=== PATIENT | female | born 1980 | race Two or more races ===

== ENCOUNTER 2024-10-22 20:13 | Emergency (ER) | payer OTHER ==
[~2024-10-22] VITALS: Ht 165.1 cm; Wt 90.9 kg
[2024-10-22 21:03] LABS: Basophils # (auto) 0 10 ^3/uL (0-0.2); Basophils % (auto) 0.4 % (0.0-2.0); Eosinophils # (auto) 0.1 10 ^3/uL (0-0.8); Eosinophils % (auto) 1.2 % (0.0-7.0); Hematocrit 35.2 % (36.0-46.0); Hemoglobin 12.2 g/dL (12.2-16.2); Lymphocytes # (auto) 2.6 10 ^3/uL (0.4-5.4); Lymphocytes % (auto) 23.1 % (10.0-50.0); Mean Corpuscular Hemoglobin 32.8 pg (28.0-32.0); Mean Corpuscular Hgb Conc. 34.5 g/dL (32.0-36.0); Mean Corpuscular Volume 95.2 fL (80.0-100.0); Monocytes # (auto) 0.9 10 ^3/uL (0-1.3); Monocytes % (auto) 7.7 % (0.0-12.0); Neutrophils # (auto) 7.5 10 ^3/uL (1.6-8.6); Neutrophils % (auto) 67.6 % (37.0-80.0); Nucleated Red Blood Cells % 0.1 %; Platelet Count (auto) 196 10^3/uL (140-450); Red Cell Distribution Width 13.3 % (11.8-14.3); White Blood Cell 11.1 10^3/uL (4.4-10.8)
--- NOTE | 2024-10-22 21:14 | ED.PDOC ---
History of Present Illness HPI Comments 44-year-old female who came to the ER via EMS for bleeding varicose veins. Patient is a , currently 26 weeks . She does have history of gestational hypertension. Earlier to the she started having bleeding varicose veins on the left leg. Bleeding stopped at this time of care. 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 Cardiac: No chest pain. No palpitations. Lungs: No shortness of breath, no cough. GI: No nausea, no vomiting, no diarrhea, no constipation, no abdominal pain : No dysuria, frequency, or urgency. No hematuria. Musculoskeletal: No joint pain , no joint swelling, no extremity edema. (+) bleeding varicose vein Skin: No rash, no itching. Neuro: No headache, no dizziness, no weakness Vital Signs Vital Signs Date Time Temp Pulse Resp B/P (MAP) Pulse Ox O2 Delivery O2 Flow Rate FiO2 10/22/24 20:24 98.2 90 18 132/95 (107) 100 98.2 Physical Exam General: Awake, alert and oriented. No acute distress. Skin: Skin in warm, dry and intact. Appropriate color for ethnicity. Nailbeds pink with no cyanosis. HEENT: The head is normocephalic and atraumatic. Conjunctivae are clear without exudates or hemorrhage. Sclera is non-icteric. EOM are intact. No signs of n ystagmus. Eyelids are normal in appearance without swelling or lesions. Oral mucosa is pink and moist Neck: The neck is supple with normal range of motion. No JVD. Cardiac: Heart rate and rhythm are normal. No murmurs, gallops, or rubs are auscultated. Respiratory: No signs of respiratory distress. Lung sounds are clear in all lobes bilaterally without rales, ronchi, or wheezes. Abdominal: Abdomen is soft, gravid. Bowel sounds are present and normoactive in all four quadrants. Extremities: Upper and lower extremities are atraumatic in appearance without deformity or edema. Area of bruising left lower extremity. No active bleeding. Neurological: The patient is awake, alert and oriented to person, place, and time with normal speech. Speech is clear. There is no facial asymmetry. Psychiatric: Appropriate mood and affect. Good judgement and insight. No visual or auditory hallucinations. Past Medical History PAST MEDICAL HISTORY: Denies Past Medical History (Other): Gestational hypertension 6 Para 3 Family History Family History: Reviewed,noncontributory to illness Social History Smoker: Non-Smoker Alcohol: Denies ETOH Use Drugs: Denies Drug Use Lives In: Home Was a procedure done? Was a procedure done?: No Differential Dx Considerations may include: , varicose veins, gestational hypertension, anemia, X-Ray, Labs, Meds, VS Vital Signs Date Time Temp Pulse Resp B/P (MAP) Pulse Ox O2 Delivery O2 Flow Rate FiO2 10/22/24 20:24 98.2 90 18 132/95 (107) 100 98.2 Lab Test 10/22/24 20:50 Range/Units White Blood Count 11.1 H 4.4-10.8 10^3/uL Red Blood Count 3.70 L 4.0-5.20 10^6/uL Hemoglobin 12.2 12.2-16.2 g/dL Hematocrit 35.2 L 36.0-46.0 % Mean Corpuscular Volume 95.2 80.0-100.0 fL Mean Corpuscular Hemoglobin 32.8 H 28.0-32.0 pg Mean Corpuscular Hemoglobin Concent 34.5 32.0-36.0 g/dL Red Cell Distribution Width 13.3 11.8-14.3 % Platelet Count 196 140-450 10^3/uL Mean Platelet Volume 9.4 6.9-10.8 fL Neutrophils (%) (Auto) 67.6 37.0-80.0 % Lymphocytes (%) (Auto) 23.1 10.0-50.0 % Monocytes (%) (Auto) 7.7 0.0-12.0 % Eosinophils (%) (Auto) 1.2 0.0-7.0 % Basophils (%) (Auto) 0.4 0.0-2.0 % Neutrophils # (Auto) 7.5 1.6-8.6 10 ^3/uL Lymphocytes # (Auto) 2.6 0.4-5.4 10 ^3/uL Monocytes # (Auto) 0.9 0-1.3 10 ^3/uL Eosinophils # (Auto) 0.1 0-0.8 10 ^3/uL Basophils # (Auto) 0 0-0.2 10 ^3/uL Nucleated Red Blood Cells 0.1 % Prothrombin Time 10.0 9.3-11.8 sec Prothrombin Time INR 0.94 0.9-1.15 Sodium Level 138 136-145 mmol/L Potassium Level 3.6 3.5-5.1 mmol/L Chloride Level 105 98-107 mmol/L Carbon Dioxide Level 25 20-31 mmol/L Anion Gap 8 5-15 Blood Urea Nitrogen 12 9-23 mg/dL Creatinine 0.57 0.550-1.02 mg/dL Glomerular Filtration Rate Calc 115 >90 mL/min BUN/Creatinine Ratio 21.1 H 10.0-20.0 Serum Glucose 125 H 74-106 mg/dL Calcium Level 9.7 8.7-10.4 mg/dL Total Bilirubin 0.4 0.2-1.0 mg/dL Aspartate Amino Transferase (AST) 17 13-40 U/L Alanine Aminotransferase (ALT) 24 7-40 U/L Alkaline Phosphatase 70 46-116 U/L Total Protein 7.1 5.7-8.2 g/dL Albumin 4.0 3.2-4.8 g/dL Time of 1ST Reevaluation: 21:09 Reevaluation 1ST: Unchanged Patient Education/Counseling: Diagnosis, Treatment Family Education/Counseling: No Family Present Departure 1 Departure Time of Disposition: 22:25 Impression: Primary Impression: Gestational hypertension Disposition: 01 HOME / SELF CARE / HOMELESS Condition: Stable Comments 44-year-old female 26 weeks gestational age, called 911 for bleeding varicose vein. Bleeding resolved with pressure prior to arrival. Patient's blood pressure was noted to be elevated with EMS. She does have gestational hypertension and is taking labetalol as prescribed. Blood pressure controlled here in the emergency department. Patient felt stable for discharge. Extensive evaluation was performed in attempt to identify or rule out: (See differential diagnosis section) The following tests were ordered, and results were reviewed by me and discussed with the patient: (See diagnostic results section) The following test were independently interpreted by me: N/A I reviewed and agreed with the following test results read by other providers: N/A I reviewed the following notes from the pt's past medical encounters: (None available at this time) Additional information was gathered from interviewing the following independent historians: EMS personnel Decision regarding hospitalization or escalation of hospital level of care: Risks and benefits of admission for further treatment of patient's condition was considered however due to patient's stable condition patient will be discharged to follow up closely or return to care for worsening of condition or inability to follow up. Critical Care Note Critical Care Time?: No Stability Stability form required: No Heart Score Heart Score: Heart Score Response (Comments) Value History N/A 0 EKG N/A 0 Age N/A 0 Risk Factors N/A 0 Troponin N/A 0 Total 0 I personally scribed for MARQUES VICTOR MD ([email or web address]) on 10/22/24 at 21:14. Electronically submitted by Rusty Chandra ([email or web address]). MARQUES VICTOR MD Oct 22, 2024 21:14
[2024-10-22 21:18] LABS: Alanine Aminotransferase 24 U/L (7-40); Alkaline Phosphatase 70 U/L (46-116); Anion Gap 8 (5-15); Aspartate Aminotransferase 17 U/L (13-40); BUN/Creatinine Ratio 21.1 (10.0-20.0); Bilirubin, Total 0.4 mg/dL (0.2-1.0); Blood Urea Nitrogen 12 mg/dL (9-23); Calcium 9.7 mg/dL (8.7-10.4); Carbon Dioxide 25 mmol/L (20-31); Chloride 105 mmol/L (98-107); Potassium 3.6 mmol/L (3.5-5.1); Sodium 138 mmol/L (136-145); Total Protein 7.1 g/dL (5.7-8.2)
[2024-10-22 21:33] LABS: Glucose 125 mg/dL (74-106)
[2024-10-22 21:40] LABS: INR 0.94 (0.9-1.15)
[2024-10-22 22:32] VITALS: BP 124/56; TEMP 98.4
[2024-10-22 22:36] VITALS: PULSE 76; RESP 17; O2SAT 96
== END 2024-10-22 22:38 | disposition home or self-care (01) ==
LOC: EDBD 20:13 → ER 20:19
DX: O13.2 Gestational [pregnancy-induced] hypertension without significant proteinuria, second trimester (principal); O09.292 Supervision of pregnancy with other poor reproductive or obstetric history, second trimester; Z3A.26 26 weeks gestation of pregnancy; Z88.5 Allergy status to narcotic agent
CPT/HCPCS: 36415; 80053; 85025; 85610; 86850; 86900; 86901